=== PATIENT | male | born 1940 | race Caucasian/White ===

== ENCOUNTER 2020-09-20 13:55 | Inpatient (IN) | payer OTHER ==
[~2020-09-20] VITALS: Ht 182.9 cm; Wt 95.4 kg
[~2020-09-20 13:55] MED LIST: BAYER CHEWABLE81 MG PO; CARTIA XT120 MG PO; COZAAR25 MG PO; FISH OIL 1,2001 EACH PO; FLAGYL500 MG PO; HYDRALAZINE HCL50 MG PO; ISOSORBIDE MONO60 MG PO; MULTIVITAMINS1 EAC1 PO; NEURONTIN 300300 MG PO; PLAVIX 75 MG TA75 MG PO; PRAVASTATIN SOD40 MG PO; VITAMIN D250000 UNIT PO
[2020-09-20 17:13] LABS: HEMOGLOBIN 13.1 gm/dl (14.0-17.5); RED BLOOD COUNT 4.49 M/UL (4.20-5.50); WHITE BLOOD COUNT 10.2 K/UL (4.5-11.0)
[2020-09-20] MEDS ORDERED: NEXIUM40 MG PO (18:17)
[2020-09-20] MEDS ORDERED: LEVEMIR FL100 UNIT/1 SQ (18:19)
[2020-09-21 03:44] LABS: RED BLOOD COUNT 4.5 M/UL (4.20-5.50); WHITE BLOOD COUNT 11.9 K/UL (4.5-11.0)
[2020-09-22 05:10] LABS: HEMOGLOBIN 11.8 gm/dl (14.0-17.5)
[2020-09-22 05:12] LABS: RED BLOOD COUNT 4.03 M/UL (4.20-5.50)
[2020-09-23 06:45] LABS: HEMOGLOBIN 11.5 gm/dl (14.0-17.5); RED BLOOD COUNT 3.92 M/UL (4.20-5.50); WHITE BLOOD COUNT 12.5 K/UL (4.5-11.0)
[2020-09-24 05:38] LABS: HEMOGLOBIN 11.3 gm/dl (14.0-17.5); RED BLOOD COUNT 3.83 M/UL (4.20-5.50)
[2020-09-24 05:50] LABS: WHITE BLOOD COUNT 8.8 K/UL (4.5-11.0)
[2020-09-24] MEDS ORDERED: HYDROCODON-ACE1 EAC2 PO (13:04)
== END 2020-09-24 13:44 | disposition home health service (06) | DRG 481 ==
LOC: ER1 13:55 → CDU 17:01 → M/S 17:01
PROVIDERS: Nurse Practitioner; Orthopaedic Surgery; Physician Assistant Medical; ADMIT Internal Medicine
PROC: 0QS704Z Reposition Left Upper Femur with Internal Fixation Device, Open Approach (ICD-10-PCS; principal; 2020-09-21 09:00)
DX: S72.012A Unspecified intracapsular fracture of left femur, initial encounter for closed fracture (principal); I69.354 Hemiplegia and hemiparesis following cerebral infarction affecting left non-dominant side; W19.XXXA Unspecified fall, initial encounter; Z20.822 Contact with and (suspected) exposure to COVID-19; I12.9 Hypertensive chronic kidney disease with stage 1 through stage 4 chronic kidney disease, or unspecified chronic kidney disease; E11.22 Type 2 diabetes mellitus with diabetic chronic kidney disease; N18.30 Chronic kidney disease, stage 3 unspecified; M21.052 Valgus deformity, not elsewhere classified, left hip; E78.5 Hyperlipidemia, unspecified; K21.9 Gastro-esophageal reflux disease without esophagitis; I25.10 Atherosclerotic heart disease of native coronary artery without angina pectoris; I73.9 Peripheral vascular disease, unspecified; Z88.1 Allergy status to other antibiotic agents; Z88.8 Allergy status to other drugs, medicaments and biological substances; Z90.49 Acquired absence of other specified parts of digestive tract
CPT/HCPCS: 36415; 73502; 73522; 76000; 80048; 80053; 82962; 85025; 85027; 85610; 86850; 86900; 86901; 93005; 96374; 96375; 97110-GP-CQ; 97116-GP-CQ; 97162; 97166; 97530-GP-CQ; 97535; 99285; C1713; J0171; J0690; J1100; J2001; J2270; J2704; J2795; J3010; J7030; J7120; U0002